=== PATIENT | male | born 1990 | race Caucasian/White ===

== ENCOUNTER 2017-03-14 07:11 | Emergency (ER) | payer MEDICARE, BC ==
[~2017-03-14] VITALS: Ht 188 cm; Wt 106.6 kg
--- NOTE | 2017-03-14 07:26 | ER Report ---
History and Physical Time Seen By MD: 07:26 Hx. of Stated Complaint: LOW BACK PAIN FOLLOWING CROSSFIT WORKOUT. HPI/ROS CHIEF COMPLAINT: low back pain HISTORY OF PRESENT ILLNESS: This is a 26 year old male. He had sudden onset of low back pain while doing a -lift during cross-fit this morning. He collapsed and was unable to get up for a time. He finally was able to walk, but with significant pain and legs felt weak. He has pain across the lumbar area on both sides, does radiate into legs. Low back feels numb, but seems to have normal sensation in legs. Has history of low back problems intermittently in the past. Has had x-rays in the last few weeks, which were normal. He has done physical therapy and had evaluation at [facility] about 6 months ago. No loss of control of bowel or bladder. Injury about 30minutes ago; came right to the hospital. No fevers or chills. REVIEW OF SYSTEMS: Respiratory: No shortness of breath. Cardiovascular: No chest pain, no palpitations. Gastrointestinal: No vomiting, no abdominal pain. Musculoskeletal: No other musculoskeletal pain. Neuro: No loss of consciousness. Allergies: Coded Allergies: divalproex sodium (Verified Allergy, Severe, 03/14/17) sertraline (Verified Allergy, Severe, 03/14/17) lurasidone (Verified Allergy, Unknown, 03/14/17) Home Meds Active Scripts Cyclobenzaprine Hcl (CYCLOBENZAPRINE HCL) 10 Mg Tablet, 10 MG PO Q8H Y for MUSCLE SPASMS, #20 TAB 0 Refills Prov:YADIRA PATEL MD 03/14/17 Reported Medications Aripiprazole (ABILIFY) 30 Mg Tablet, 30 MG PO QDAY, #10 TAB 03/14/17 Hydroxyzine Pamoate (VISTARIL) 50 Mg Capsule, 50 MG PO QID, CAPSULE 03/14/17 Quetiapine Fumarate (SEROQUEL) 400 Mg Tablet, 400 MG PO 03/14/17 Trihexyphenidyl Hcl (TRIHEXYPHENIDYL HCL) 2 Mg Tablet, 2 MG PO TID 03/14/17 Oxcarbazepine (TRILEPTAL) 300 Mg Tablet, 300 MG PO DAILY 03/14/17 Reviewed Nurses Notes: Yes Constitutional Vital Sign - Last 24 Hours 03/14/17 03/14/17 07:16 08:36 Temp 98.1 Pulse 116 106 Resp 18 16 B/P (MAP) 151/77 148/90 (109) Pulse Ox 95 95 O2 Delivery Room Air Room Air Physical Exam General appearance: alert no distress. Back: Thoracic spine has no spinal or paraspinal tenderness to palpation. Lumbar spine has both spinal and paraspinal tenderness. Has some muscle spasming. Gastrointestinal: Abdomen is soft, non-tender. Skin: No lesions and no rashes. Cardiovascular: Normal capillary refill. Neurological: Normal sensation throughout legs. Hard to tell if weakness or inhibition due to pain. Strait leg raise causes pain in low back, but no radiating pain. DIFFERENTIAL DIAGNOSIS: After history and physical exam differential diagnosis was considered for back pain during lifting at cross-fit with question of weakness in legs versus inhibition due to pain. Will give pain medicine and muscle relaxer and get MRI given injury today and history recently. Medical Decision Making EKG/Imaging Imaging EXAMINATION: L SPINE W/O CONTRAST INDICATION: Low back pain COMPARISON: None available TECHNIQUE: Multiplane MR imaging was performed through the lumbar spine without contrast. FINDINGS: Vertebral bodies: Normal vertebral body heights. Conus position/signal: Normal Marrow signal: Small Schmorl's node within the inferior L4 endplate. Benign L2 vertebral body hemangioma. Extraspinal structures including psoas muscles/paraspinal soft tissues: Normal L1-2: Normal L2-3: Slight retrolisthesis of L2 on L3, minimal disc protrusion within the inferior aspects of both foramen without resultant foraminal narrowing, otherwise normal. L3-4: Normal L4-5: Posterior disc annular fissure, small posterior disc protrusion, slight bilateral lateral recess narrowing, mild right foraminal narrowing, mild left foraminal narrowing. Disc desiccation and minimal disc space height loss. L5-S1: Disc desiccation and minimal disc space height loss. Posterior disc annular fissure, 3.6 mm AP dimension posterior disc protrusion, slight bilateral lateral recess narrowing and mild thecal sac narrowing. Mild bilateral foraminal narrowing. IMPRESSION: 1. Posterior L4-5 and L5-S1 disc annular fissures. 2. Slight bilateral L4-5 lateral recess narrowing secondary to small disc protrusion. 3. Mild L5-S1 thecal sac narrowing and slight bilateral lateral recess narrowing secondary to 3.6 mm AP dimension posterior disc protrusion. 4. Mild L4-5 and L5-S1 foraminal narrowing, see comments above. 5. L4-5 and L5-S1 degenerative disc desiccation. Report Dictated By: Bobby Ayala MD at 03/14/2017 9:26 AM ED Course/Re-evaluation ED Course After my initial evaluation, there was question of weakness or just inhibition due to pain. MRI was ordered and the patient was given IM injections of Toradol and Norflex. He has mild relief with the medicines. Back pain worsened after laying for the MRI, but is not severe. MRI as noted above and discussed these findings with the patient. We will refer him back to [facility] for further evaluation. Conservative management. We decided to avoid steroids for fear of starting a manic episode and instead will use 800mg of Ibuprofen 3 times a day. Also prescribed him a muscle relaxer, Flexeril. Decision to Disposition Date: Mar 14, 2017 Decision to Disposition Time: 10:18 Depart Departure Latest Vital Signs Vital Signs Date Time Temp Pulse Resp B/P (MAP) Pulse Ox O2 Delivery O2 Flow Rate FiO2 03/14/17 08:36 106 16 148/90 (109) 95 Room Air 03/14/17 07:16 98.1 Impression: Primary Impression: Low back strain Additional Impressions: Degenerative disc disease, lumbar Radiculitis, lumbosacral Condition: Improved Disposition: HOME OR SELF-CARE Referrals: MARTHA MUHAMMAD (PCP) New Scripts Cyclobenzaprine Hcl (CYCLOBENZAPRINE HCL) 10 Mg Tablet 10 MG PO Q8H Y for MUSCLE SPASMS, #20 TAB 0 Refills Prov: YADIRA PATEL MD 03/14/17 Patient Instructions: Degenerative Disc Disease (ED), Low Back Strain (ED) Additional Instructions: Please call and follow-up with [facility] for further evaluation. Take Ibuprofen 200mg over the counter tablets, take 4 tablets every 8 hours as needed for pain. Take Flexeril 10mg, one every 8 hours as needed for muscle spasm and pain. Relative rest - keep moving but do not over do it. Problem Qualifiers Primary Impression: Low back strain Encounter type: initial encounter Qualified Codes: S39.012A - Strain of muscle, fascia and tendon of lower back, initial encounter YADIRA PATEL MD Mar 14, 2017 07:26
[2017-03-14] MEDS ORDERED: ARIP30TA10 PO (07:27)
[2017-03-14] MEDS ORDERED: OXCA300T44 PO (07:27)
[2017-03-14] MEDS ORDERED: QUET400T11 PO (07:27)
[2017-03-14] MEDS ORDERED: TRIH2TAB17 PO (07:27)
[2017-03-14] MEDS ORDERED: HYDR50CA47 PO (07:27)
[2017-03-14] MEDS ORDERED: KETOROLAC 60 MG/2 ML VIAL IM ONE (07:35)
[2017-03-14] MEDS ORDERED: ORPHENADRINE 60MG/2ML INJ IM ONE (07:35)
[2017-03-14 08:36] VITALS: BP 148/90
--- NOTE | 2017-03-14 09:38 | RADIOLOGY IMAGING REPORT ---
FACILITY: [facility] - [place] PATIENT NAME: Romeo Mauricio : 1990 MR: [id number] V: [id number] EXAM DATE: ORDERING PHYSICIAN: YADIRA PATEL TECHNOLOGIST: Location: [facility] [place] Patient: Romeo Mauricio : 1990 Visit/Account:[id number] Date of Sevice: 03/14/2017 EXAMINATION: L SPINE W/O CONTRAST INDICATION: Low back pain COMPARISON: None available TECHNIQUE: Multiplane MR imaging was performed through the lumbar spine without contrast. FINDINGS: Vertebral bodies: Normal vertebral body heights. Conus position/signal: Normal Marrow signal: Small Schmorl's node within the inferior L4 endplate. Benign L2 vertebral body hemangi ramiro. Extraspinal structures including psoas muscles/paraspinal soft tissues: Normal L1-2: Normal L2-3: Slight retrolisthesis of L2 on L3, minimal disc protrusion within the inferior aspects of both foramen without resultant foraminal narrowing, otherwise normal. L3-4: Normal L4-5: Posterior disc annular fissure, small posterior disc protrusion, slight bilateral lateral reces s narrowing, mild right foraminal narrowing, mild left foraminal narrowing. Disc desiccation and mini mal disc space height loss. L5-S1: Disc desiccation and minimal disc space height loss. Posterior disc annular fissure, 3.6 mm AP dimension posterior disc protrusion, slight bilateral lateral recess narrowing and mild thecal sac n arrowing. Mild bilateral foraminal narrowing. IMPRESSION: 1. Posterior L4-5 and L5-S1 disc annular fissures. 2. Slight bilateral L4-5 lateral recess narrowing secondary to small disc protrusion. 3. Mild L5-S1 thecal sac narrowing and slight bilateral lateral recess narrowing secondary to 3.6 mm AP dimension posterior disc protrusion. 4. Mild L4-5 and L5-S1 foraminal narrowing, see comments above. 5. L4-5 and L5-S1 degenerative disc desiccation. Report Dictated By: Bobby Ayala MD at 03/14/2017 9:26 AM Report E-Signed By: Bobby Ayala MD at 03/14/2017 9:33 AM WSN:[id number]
[2017-03-14] MEDS ORDERED: CYCL10TA29 PO (10:24)
== END 2017-03-14 10:25 | disposition home or self-care (01) ==
LOC: ER 07:25
DX: S39.012A Strain of muscle, fascia and tendon of lower back, initial encounter (principal); M51.16 Intervertebral disc disorders with radiculopathy, lumbar region
CPT/HCPCS: 72148; 96372; 99283; J1885; J2360

== ENCOUNTER → 2017-04-18 | Outpatient (CLI) | payer MEDICARE, BC ==
[~2017-04-18] MED LIST: ARIP30TA10 PO; CYCL10TA29 PO; HYDR50CA47 PO; OXCA300T44 PO; QUET400T11 PO; TRIH2TAB17 PO
[2017-04-18 11:17] LABS: PLATELET COUNT, AUTOMATED 313 K/uL (150-450)
[2017-04-18 11:35] LABS: LDL CHOLESTEROL 127 mg/dl
--- NOTE | 2017-04-18 11:49 | EKG ---
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 Rate : 080 BPM Atrial Rate : 080 BPM P-R Int : 156 ms QRS Dur : 104 ms QT Int : 402 ms P-R-T Axes : 050 068 034 degrees QTc Int : 463 ms Sinus arrhythmia Nonspecific interventricular conduction delay Slightly prolonged QTc Nonspecific ST findings No previous ECGs available Confirmed by MADDISON OLSEN ([id number]) on 04/18/2017 3:49:19 PM Referred By: NORMA Confirmed By:MADDISON OLSEN
== END ==
LOC: LAB 10:16
PROVIDERS: ATTEND Psychiatry & Neurology Psychiatry
DX: R03.0 Elevated blood-pressure reading, without diagnosis of hypertension (principal); Z79.899 Other long term (current) drug therapy; E55.9 Vitamin D deficiency, unspecified
CPT/HCPCS: 36415; 82040; 82247; 82306; 82310; 82374; 82435; 82465; 82565; 82947; 83036; 83718; 84075; 84132; 84146; 84155; 84295; 84450; 84460; 84478; 84520; 85025; 93005

== ENCOUNTER → 2017-05-16 | Outpatient (CLI) | payer MEDICARE, BC | LOC: LAB 08:19 | PROVIDERS: ATTEND Nurse Practitioner Family | DX: N52.9 Male erectile dysfunction, unspecified (principal) | CPT/HCPCS: 36415; 84403 ==

== ENCOUNTER → 2017-11-11 | Outpatient (CLI) | payer MEDICARE, BC ==
[2017-11-11 08:17] LABS: PLATELET COUNT, AUTOMATED 308 K/uL (150-450)
--- NOTE | 2017-11-11 08:31 | EKG ---
FACILITY: [facility] PATIENT NAME: MICAH FERNANDES : [id number] MR: [id number] V: [id number] EXAM DATE: ORDERING PHYSICIAN: DODIE GREEN TECHNOLOGIST: Test Reason : Blood Pressure : / mmHG Vent. Rate : 094 BPM Atrial Rate : 094 BPM P-R Int : 154 ms QRS Dur : 098 ms QT Int : 388 ms P-R-T Axes : 031 066 030 degrees QTc Int : 485 ms Normal sinus rhythm Prolonged QT Abnormal ECG No previous ECGs available Confirmed by PORSHA SEBASTIAN ([id number]) on 11/11/2017 1:38:09 PM Referred By: Confirmed By:PORSHA SEBASTIAN
[2017-11-11 08:33] LABS: LDL CHOLESTEROL 168 mg/dl
== END ==
LOC: LAB 08:01
PROVIDERS: ATTEND Psychiatry & Neurology Psychiatry
DX: Z79.899 Other long term (current) drug therapy (principal); R94.31 Abnormal electrocardiogram [ECG] [EKG]
CPT/HCPCS: 36415; 82040; 82247; 82310; 82374; 82435; 82465; 82565; 82947; 83036; 83718; 84075; 84132; 84146; 84155; 84295; 84439; 84443; 84450; 84460; 84478; 84481; 84520; 85025; 93005

== ENCOUNTER → 2017-11-21 | Outpatient (CLI) | payer MEDICARE, BC ==
[2017-11-21 07:51] LABS: PLATELET COUNT, AUTOMATED 305 K/uL (150-450)
== END ==
LOC: LAB 07:28
PROVIDERS: ATTEND Psychiatry & Neurology Psychiatry
DX: D72.819 Decreased white blood cell count, unspecified (principal); Z79.899 Other long term (current) drug therapy
CPT/HCPCS: 36415; 85025

== ENCOUNTER → 2018-01-16 | Outpatient (CLI) | payer MEDICARE, BC ==
[2018-01-16 07:46] LABS: LDL CHOLESTEROL 128 mg/dl
== END ==
LOC: LAB 07:11
PROVIDERS: ATTEND Nurse Practitioner Family
DX: R73.03 Prediabetes (principal); E78.5 Hyperlipidemia, unspecified; R53.83 Other fatigue; R74.8 Abnormal levels of other serum enzymes
CPT/HCPCS: 36415; 82040; 82247; 82310; 82374; 82435; 82465; 82565; 82947; 83036; 83718; 84075; 84132; 84155; 84295; 84443; 84450; 84460; 84478; 84520

== ENCOUNTER → 2018-06-22 | Outpatient (CLI) | payer MEDICARE, BC ==
[2018-06-22 08:55] LABS: PLATELET COUNT, AUTOMATED 289 K/uL (150-450)
--- NOTE | 2018-06-22 09:27 | EKG ---
FACILITY: [facility] - [place] PATIENT NAME: MICAH FERNANDES : [id number] MR: [id number] V: [id number] EXAM DATE: ORDERING PHYSICIAN: FLORI COLLINS TECHNOLOGIST: Test Reason : R19.7, Z79.899 and R07.89 Blood Pressure : / mmHG Vent. Rate : 065 BPM Atrial Rate : 065 BPM P-R Int : 154 ms QRS Dur : 104 ms QT Int : 418 ms P-R-T Axes : 045 070 043 degrees QTc Int : 434 ms Normal sinus rhythm with sinus arrhythmia Normal ECG When compared with ECG of 11-NOV-2017 08:19, T wave amplitude has increased in Anterior leads QT has shortened Confirmed by FLORI COLLINS ([id number]) on 06/22/2018 3:23:12 PM Referred By: Confirmed By:FLORI COLLINS
== END ==
LOC: LAB 08:35
PROVIDERS: ATTEND Nurse Practitioner Family
DX: R19.7 Diarrhea, unspecified (principal); R07.89 Other chest pain; Z79.899 Other long term (current) drug therapy
CPT/HCPCS: 36415; 82040; 82247; 82310; 82374; 82435; 82565; 82947; 84075; 84132; 84155; 84295; 84450; 84460; 84520; 85025; 93005

== ENCOUNTER → 2018-09-11 | Outpatient (CLI) | payer MEDICARE, BC ==
[2018-09-11 09:59] LABS: LDL CHOLESTEROL 170 mg/dl
[2018-09-11 10:34] LABS: PLATELET COUNT, AUTOMATED 330 K/uL (150-450)
== END ==
LOC: LAB 08:56
PROVIDERS: ATTEND Psychiatry & Neurology Psychiatry
DX: N62 Hypertrophy of breast (principal)
CPT/HCPCS: 36415; 80183; 82040; 82247; 82310; 82374; 82435; 82465; 82565; 82947; 83036; 83718; 84075; 84132; 84146; 84155; 84295; 84439; 84443; 84450; 84460; 84478; 84481; 84520; 85025